=== PATIENT | female | born 1955 | race Caucasian/White ===

== ENCOUNTER → 2022-12-29 | Day surgery (SDC) | payer MEDICARE ==
[~2022-12-29] MED LIST: Iopamidol-M 200 41% 10 ML VIAL FS ONE; Lidocaine 1% PF 5 ML VIAL ONE; Sodium Bicarbonate 2.5 MEQ/5 ML VIAL ONE
[2022-12-29 14:54] VITALS: BP 137/79; TEMP 98.5
== END ==
LOC: CSHRAD 13:04
PROVIDERS: ATTEND Neurological Surgery
PROC: B02BYZZ Computerized Tomography (CT Scan) of Spinal Cord using Other Contrast (ICD-10-PCS; principal; 2022-12-29)
DX: M54.16 Radiculopathy, lumbar region (principal)
CPT/HCPCS: 62304; 72132; Q9966

== ENCOUNTER 2023-08-09 14:31 | Outpatient (CLI) | payer MEDICARE | END 2023-08-09 14:32 | disposition home or self-care (01) | LOC: CSHRAD 14:31 | PROVIDERS: ATTEND Neurological Surgery | DX: M47.27 Other spondylosis with radiculopathy, lumbosacral region (principal); Z98.1 Arthrodesis status; S32.020D Wedge compression fracture of second lumbar vertebra, subsequent encounter for fracture with routine healing; I72.8 Aneurysm of other specified arteries | CPT/HCPCS: 72100 ==

== ENCOUNTER 2023-10-05 13:47 | Outpatient (CLI) | payer MEDICARE | END 2023-10-05 13:48 | disposition home or self-care (01) | LOC: CSHRAD 13:47 | PROVIDERS: ATTEND Neurological Surgery | DX: M54.16 Radiculopathy, lumbar region (principal); Z98.890 Other specified postprocedural states | CPT/HCPCS: 72100 ==